=== PATIENT | female | born 1980 | race Caucasian/White ===

== ENCOUNTER 2017-09-10 14:11 | Emergency (ER) | payer OTHER ==
[2017-09-10] MEDS: ONDANSETRON PF 4 MG/2 ML VIAL. IV (14:49)
[2017-09-10] MEDS: MORPHINE SULFATE 4 MG/ML DISP.SYRIN. IV (14:49)
[2017-09-10 14:50] LABS: BILIRUBIN,URINE NEGATIVE (NEG); CLARITY,URINE CLEAR; COLOR,URINE YELLOW; GLUCOSE,URINE NEGATIVE (NEG); NITRITE,URINE NEGATIVE (NEG); PH,URINE 7.5; PROTEIN,URINE NEGATIVE (NEG-TRACE); UROBILINOGEN,URINE 0.2 mg/dL (0.2 mg/dL)
[2017-09-10 14:52] LABS: ADD MAN DIFF? NO
[2017-09-10 14:54] LABS: BASO % 1 % (0-3); EOS % 1 % (0-3); HEMATOCRIT 41.4 % (36.0-47.0); HEMOGLOBIN 14.3 g/dL (12.0-15.5); LYMPH # 1.1 x10^3/uL (1.0-4.8); LYMPH % 25 % (24-48); MEAN CORPUSCULAR HEMOGLOBIN 30 pg (25-35); MEAN CORPUSCULAR HGB CONC 35 g/dL (31-37); MEAN CORPUSCULAR VOLUME 88 fL (79-100); MONO # 0.4 x10^3/uL (0.0-1.1); MONO % 10 % (0-9); NEUT # 2.8 x10^3uL (1.8-7.7); NEUT % 63 % (31-73); PLATELET COUNT 114 x10^3/uL (140-400); RED BLOOD COUNT 4.72 x10^6/uL (3.50-5.40); RED CELL DISTRIBUTION WIDTH 13.1 % (11.5-14.5); WHITE BLOOD COUNT 4.5 x10^3/uL (4.0-11.0)
[2017-09-10 15:12] LABS: ANION GAP 8 (6-14); BLOOD UREA NITROGEN 12 mg/dL (7-20); BUN/CREATININE RATIO 13 (6-20); CALCIUM 8.8 mg/dL (8.5-10.1); CARBON DIOXIDE 29 mmol/L (21-32); CHLORIDE 101 mmol/L (98-107); CREATININE 0.9 mg/dL (0.6-1.0); GFR 70.8; GLUCOSE 102 mg/dL (70-99); POTASSIUM 3.3 mmol/L (3.5-5.1); SODIUM 138 mmol/L (136-145)
[2017-09-10 15:15] LABS: BACTERIA,URINE FEW /HPF (0-FEW); RBC,URINE OCC /HPF (0-2); SQUAMOUS EPITHELIAL CELL,UR MOD /LPF; YEAST,URINE PRESENT /HPF
[2017-09-10 15:17] LABS: ALBUMIN 4.2 g/dL (3.4-5.0); ALBUMIN/GLOBULIN RATIO 1.6 (1.0-1.7); ALK PHOS 110 U/L (46-116); ALT (SGPT) 21 U/L (14-59); AST (SGOT) 15 U/L (15-37); TOTAL BILIRUBIN 0.3 mg/dL (0.2-1.0); TOTAL PROTEIN 6.9 g/dL (6.4-8.2)
[2017-09-10] MEDS: fentaNYL PF VIAL 100 MCG/2 ML VIAL IV (16:06)
== END 2017-09-10 17:02 | disposition home or self-care (01) ==
LOC: ER 14:11
DX: E83.59 Other disorders of calcium metabolism (principal); N29 Other disorders of kidney and ureter in diseases classified elsewhere; N39.0 Urinary tract infection, site not specified; M32.9 Systemic lupus erythematosus, unspecified
CPT/HCPCS: 36415; 74176; 80053; 81001; 85025; 87086; 96374; 96375; 99285-25; J2270; J2405; J3010

== ENCOUNTER → 2020-06-24 | Outpatient (CLI) | payer OTHER ==
[2017-09-10 14:33] VITALS: BP 130/82
[~2020-06-24] VITALS: Ht 165.1 cm; Wt 64.9 kg
[~2020-06-24] MED LIST: FLUC150T PO; HYDR-3164 PO; SINCALIDE 1.3 MCG in IV NORMAL SALINE 50ML 30 ML IV ONE; SULF1TAB24 PO
--- NOTE | 2020-06-24 10:07 | RAD ---
Ultrasound of the right upper quadrant of the abdomen 06/24/2020 CLINICAL HISTORY: Right upper quadrant abdominal pain. TECHNIQUE: A real-time ultrasound examination of the right upper quadrant abdomen was performed. Mult iple images were obtained. FINDINGS: Comparison is made to a CT scan of the abdomen dated 09/10/2017. The gallbladder is well-distended. No gallstones are visualized. The gallbladder wall thickness is wi thin normal limits. No pericholecystic fluid is seen. The common bile duct measures 5 mm in diameter which is within normal limits. The liver is normal in size and echogenicity. It measures 15.5 cm in length. The visualized portions of the pancreas is within normal limits. Medullary nephrocalcinosis of the right kidney is again seen . No significant hydronephrosis is noted. No free fluid is seen. IMPRESSION: Right medullary nephrocalcinosis. Otherwise negative study. Electronically signed by: Mika Calles MD (06/24/2020 10:04 AM) [id number]
--- NOTE | 2020-06-24 13:15 | RAD ---
INDICATION: Right upper quadrant pain COMPARISON: Ultrasound from earlier same day TECHNIQUE: 5.5mCi of Tc99m Choletec was injected intravenously followed by scintigraphic images of the abdomen. 1.3 mcg of CCK was then injected and a gallbladder ejection fraction was calculated. FINDINGS: Appropriate radiotracer clearance from the blood pool. Appropriate radiotracer excretion into the biliary tree. Prompt passage of contrast into the small bowel. Visualization of the gallbladder prior to the 60 minute time point. Gallbladder ejection fraction is 19 percent. IMPRESSION: 1. No scintigraphic evidence of acute cholecystitis or high grade biliary obstruction. 2. Decreased ejection fraction of the gallbladder. Can be seen with biliary dyskinesia. Electronically signed by: Iam Berumen MD (06/24/2020 1:13 PM) [id number]
== END ==
LOC: US 06:45
PROVIDERS: ATTEND Physician Assistant
DX: E83.59 Other disorders of calcium metabolism (principal); N29 Other disorders of kidney and ureter in diseases classified elsewhere
CPT/HCPCS: 76705; 78227; A9537; J2805